=== PATIENT | male | born 1990 | race Native Hawaiian/Other Pacific Islander ===

== ENCOUNTER → 2017-10-03 | Outpatient (CLI) | payer BC ==
[~2017-10-03] MED LIST: GADAVIST IV PRN
--- NOTE | 2017-10-03 15:34 | DIAGNOSTIC IMAGING REPORT ---
BRAIN COMBO FOR PITUITARY CLINICAL HISTORY: ELEVATED PROLACTIN,HYPOTHYROIDISM COMPARISON STUDY: None. TECHNIQUE: Utilizing 1.5 Yue magnet, multiplanar, multiecho imaging of the brain was performed with thin cut imaging through the pituitary gland pre and postcontrast administration. Injection of 11.5 cc of Gadavist IV was uneventful. Post contrast imaging was performed utilizing dynamic enhancement. FINDINGS: No foci of restricted diffusion are noted. No acute intracranial hemorrhage, midline shift or mass effect is present. Brain volume is normal. Ventricular system is normal. Basilar cisterns are patent. There are no extra-axial collections. Flow-voids for the major intracranial vessels are present. There is no intracranial mass or pathologic enhancement. Calvarial signal is normal. A few small mucous retention cyst within left maxillary sinus are noted. There are a few suspected mucous retention cysts within the posterior nasopharynx. The infundibulum is midline. The optic chiasm is normal. Pituitary gland is unremarkable. No pituitary lesion is noted. The gland enhances homogeneously. IMPRESSION: Unremarkable MRI of the brain and pituitary gland. No pituitary microadenoma or macroadenoma. Electronically signed by: Magno Caldera M.D. 10/03/2017 3:33 PM Dictated Date/Time: 10/03/2017 3:26 PM
== END | disposition home or self-care (01) ==
LOC: C.MRIBC 13:54
PROVIDERS: ATTEND Internal Medicine
DX: E22.9 Hyperfunction of pituitary gland, unspecified (principal); E29.1 Testicular hypofunction